=== PATIENT | female | born 1975 | race Caucasian/White ===

== ENCOUNTER 2018-12-06 11:50 | Observation (INO) | payer OTHER ==
[~2018-12-06] VITALS: Ht 165.1 cm; Wt 83.1 kg
[2018-12-06 11:51] VITALS: BP 145/102
[2018-12-06] MEDS ORDERED: PROZAC20 MG PO (11:59)
[2018-12-06] MEDS ORDERED: CRESTOR20 MG PO (11:59)
[2018-12-06] MEDS ORDERED: PROTONIX40 M2 PO (11:59)
[2018-12-06] MEDS ORDERED: OMEPRAZOLE20 MG PO (12:00)
[2018-12-06 12:09] LABS: URINE BILIRUBIN NEGATIVE (Negative); URINE BLOOD 1+ (Negative); URINE CLARITY CLEAR; URINE COLOR YELLOW; URINE GLUCOSE-RANDOM* NEGATIVE (Negative); URINE KETONES NEGATIVE (Negative); URINE LEUKOCYTES-REFLEX TRACE (Negative); URINE NITRITE-REFLEX NEGATIVE (Negative); URINE PROTEIN (DIPSTICK) NEGATIVE (Negative); URINE UROBILINOGEN 0.2 E.U./dl (0.2-1.0)
[2018-12-06 12:15] LABS: SQUAMOUS 4-10 Moderate /LPF (0-3)
[2018-12-06 12:16] LABS: CASTS None Seen /LPF (None Seen); CRYSTALS None Seen /LPF (None Seen); URINE RBC 0-2 Rare /HPF (0-2); URINE WBC-REFLEX 0-5 Rare /HPF (0-5)
[2018-12-06 12:19] LABS: ABSOLUTE NEUTROPHILS 10.8 thou/uL (1.4-8.2); EOSINOPHILS 0.3 % (0.0-3.0); HEMATOCRIT 42.4 % (37.0-47.0); HEMOGLOBIN 14.3 gm/dL (12.0-15.0); LYMPHOCYTES 25.5 % (24.0-44.0); MCH 32.1 pg (26.0-34.0); MCHC 33.8 g/dL (28.0-37.0); MONOCYTES 6.3 % (1.0-8.0); PLATELET COUNT 360 thou/uL (150-400); POLYS 66.9 % (36.0-66.0); RBC 4.46 mil/uL (4.20-5.00); RDW 12.8 % (10.5-14.5); WBC 16.1 thou/uL (4.0-11.0)
[2018-12-06 12:27] LABS: ANION GAP 11 mmol/L (7-16); BUN 6 mg/dL (7-18); CALCIUM 9.5 mg/dL (8.5-10.1); CHLORIDE 101 mmol/L (98-107); CO2 25 mmol/L (21-32); CREATININE 0.8 mg/dL (0.6-1.0); GLUCOSE 114 mg/dL (74-106); SODIUM 137 mmol/L (136-145)
[2018-12-06 12:36] LABS: LIPASE 164 U/L (73-393); SGOT 24 U/L (15-37); SGPT 29 U/L (30-65); TOTAL BILIRUBIN 0.2 mg/dL (<0.1-1.0); TOTAL PROTEIN 7.4 g/dL (6.4-8.2); TROPONIN-I <0.06 ng/mL (<0.06)
[2018-12-06 16:06] VITALS: BP 101/75
--- NOTE | 2018-12-06 16:58 | EKG ---
[address] [address] ELECTROCARDIOGRAM REPORT Name: ANISA REYNOSO Room #: 170-17 [facility]..#: [id number] ������������������ Admission: 12/06/18 ������������������ Attend Phys: Fermin Connelly MD, Discharge: ������������������ Date of : 79 Report #: [id number] ����������������������������������������������������������������� [id number] THIS REPORT FOR: //name// [facility] ED Test Date: 2018-12-06 Test Time: 12:30:04 Pat Name: ANISA REYNOSO Department: Room: 170 Gender: F Bilingual Hr Generalist: allison : 1975 Requested By: Papa Salas Order Number: [id number] MD: Tor Ruth Measurements Intervals [place] Rate: 83 P: 69 [place]: 144 QRS: 65 QRSD: 110 T: 34 QT: 383 QTc: 450 Interpretive Statements Sinus rhythm RSR' in V1 or V2, right VCD or RVH No previous ECG available for comparison Electronically Signed On 12-06-2018 16:58:34 TOUCHER UP by Tor Ruth [email or web address] ��������������������������������������������� <ELECTRONICALLY SIGNED> ���������������������������������������� By: Tor Ruth MD ��������������������������������������������� 12/06/18 1658 1230 1230 Tor Ruth MD /GEORGE
[2018-12-06 18:21] VITALS: BP 107/56
[2018-12-06 19:41] VITALS: BP 107/56
[2018-12-06 20:00] VITALS: BP 118/67
[2018-12-07 05:30] VITALS: BP 104/60
[2018-12-07 06:04] LABS: HEMATOCRIT 38.3 % (37.0-47.0); HEMOGLOBIN 12.9 gm/dL (12.0-15.0); MCH 32.7 pg (26.0-34.0); MCHC 33.6 g/dL (28.0-37.0); MCV 97.3 fL (80.0-100.0); RBC 3.93 mil/uL (4.20-5.00); WBC 8.3 thou/uL (4.0-11.0)
[2018-12-07 06:12] LABS: CALCIUM 8.2 mg/dL (8.5-10.1); CREATININE 0.7 mg/dL (0.6-1.0); POTASSIUM 4.2 mmol/L (3.5-5.1)
[2018-12-07 07:50] VITALS: BP 120/75
[2018-12-07 16:33] VITALS: BP 120/75
== END 2018-12-07 17:20 | disposition home or self-care (01) ==
LOC: ER 11:50 → 4E 14:06 → EROBS 14:06 → 4E 19:15 → ENTRNSPT 12-07 17:12 → 4E 12-07 17:20
PROVIDERS: Emergency Medicine; ADMIT Surgery
DX: R10.9 Unspecified abdominal pain (principal); D72.829 Elevated white blood cell count, unspecified; R11.2 Nausea with vomiting, unspecified; F17.210 Nicotine dependence, cigarettes, uncomplicated; Z79.899 Other long term (current) drug therapy

== ENCOUNTER 2019-04-25 13:56 | Emergency (ER) | payer OTHER ==
[~2019-04-25] VITALS: Ht 165.1 cm; Wt 79.4 kg
[~2019-04-25 13:56] MED LIST: CRESTOR20 MG PO; OMEPRAZOLE20 MG PO; PROTONIX40 M2 PO; PROZAC20 MG PO
[2019-04-25] MEDS ORDERED: EPIPEN 2-P0.3 MG/0.3 IM (15:38)
[2019-04-25 15:49] VITALS: BP 111/57
== END 2019-04-25 15:49 | disposition home or self-care (01) ==
LOC: ER 13:56
DX: T63.481A Toxic effect of venom of other arthropod, accidental (unintentional), initial encounter (principal); T78.2XXA Anaphylactic shock, unspecified, initial encounter; E78.00 Pure hypercholesterolemia, unspecified; F17.210 Nicotine dependence, cigarettes, uncomplicated; Z91.030 Bee allergy status; Z88.6 Allergy status to analgesic agent; Z90.49 Acquired absence of other specified parts of digestive tract; W57.XXXA Bitten or stung by nonvenomous insect and other nonvenomous arthropods, initial encounter